=== PATIENT | female | born 2000 | race Two or more races ===

== ENCOUNTER 2021-12-24 21:38 | Emergency (ER) | payer SELFPAY ==
[~2021-12-24] VITALS: Ht 167.6 cm; Wt 77.3 kg
[2021-12-24 21:38] VITALS: BP 116/68
== END 2021-12-25 00:56 | disposition left against medical advice (07) ==
LOC: M ED 21:38
DX: Z53.21 Procedure and treatment not carried out due to patient leaving prior to being seen by health care provider (principal)